=== PATIENT | male | born 2000 | race Caucasian/White ===

== ENCOUNTER 2024-04-29 09:48 | Emergency (ER) | payer OTHER ==
[~2024-04-29] VITALS: Ht 182.9 cm; Wt 85.3 kg
[2024-04-29] MEDS ORDERED: CIPR7.5D2 AU (12:30)
[2024-04-29 12:35] VITALS: BP 133/84; TEMP 97.1; O2SAT 98
== END 2024-04-29 12:37 | disposition home or self-care (01) ==
LOC: M ED 09:48
DX: H61.23 Impacted cerumen, bilateral (principal); F10.10 Alcohol abuse, uncomplicated; Z79.2 Long term (current) use of antibiotics

== ENCOUNTER 2024-06-26 13:46 | Inpatient (IN) | payer OTHER ==
[~2024-06-26] VITALS: Ht 182.9 cm; Wt 84.7 kg
[~2024-06-26 13:46] MED LIST: CIPR7.5D2 AU
[2024-06-26] MEDS ORDERED: ONDANSETRON 4MG 2ML VIAL IV ONE (14:25)
[2024-06-26 14:29] LABS: BASO # 0.1 10^3/uL (0.0-0.2); BASO % 1.3 % (0.0-1.0); EOS # 0.5 10^3/uL (0.0-0.5); EOS % 6.4 % (0.0-3.0); HEMATOCRIT 40.7 % (42.0-52.0); HEMOGLOBIN 14.1 g/dl (13.5-17.5); LYMPH # 2.9 10^3/uL (1.5-5.0); LYMPH % 38.4 % (24.0-44.0); MEAN CORPUSCULAR HEMOGLOBIN 30.9 pg (27.0-33.0); MEAN CORPUSCULAR HGB CONC 34.6 g/dl (32.0-36.5); MEAN CORPUSCULAR VOLUME 89.1 fl (80.0-96.0); MONO # 0.5 10^3/uL (0.0-0.8); MONO % 5.9 % (2.0-8.0); NEUTROPHILS # 3.7 10^3/uL (1.5-8.5); NEUTROPHILS % 47.9 % (36.0-66.0); PLATELET COUNT, AUTOMATED 320 10^3/uL (150-450); RED BLOOD COUNT 4.57 10^6/uL (4.30-6.10); WHITE BLOOD COUNT 7.7 10^3/uL (4.0-10.0)
[2024-06-26] MEDS: KETOROLAC 30 MG/ML 1ML VIAL IV ONE (14:39)
[2024-06-26] MEDS: METOCLOPRAMIDE INJ 10MG/2ML VIAL IV ONE (14:45)
[2024-06-26] MEDS ORDERED: ISOVUE-370 76% 100ML VIAL As Ordered ONE (14:48)
[2024-06-26] MEDS: NS 1,000 ML IV ONE (14:52)
[2024-06-26 14:58] LABS: LIPASE 28 U/L (12-53)
[2024-06-26 15:00] LABS: ALBUMIN 4.6 G/DL (3.2-5.2); ALKALINE PHOSPHATASE 61 U/L (46-116); ALT/SGPT 41 U/L (7.0-40); AST/SGOT 17 U/L (<34); BILIRUBIN,DIRECT 0.3 MG/DL (<0.4); BILIRUBIN,TOTAL 1.1 MG/DL (0.3-1.2); BLOOD UREA NITROGEN 13 MG/DL (9-23); CARBON DIOXIDE LEVEL 24 MMOL/L (20-31); CHLORIDE LEVEL 104 MMOL/L (98-107); CREATININE FOR GFR 0.86 MG/DL (0.70-1.30); GLOMERULAR FILTRATION RATE > 60.0 (>60); GLUCOSE, FASTING 120 MG/DL (60-100); POTASSIUM SERUM 3.1 MMOL/L (3.5-5.1); SODIUM LEVEL 137 MMOL/L (136-145); TOTAL PROTEIN 7.4 G/DL (5.7-8.2)
[2024-06-26] MEDS: MORPHINE 4 MG/ML 1ML VIAL IV ONE ×2 (15:12→15:41)
[2024-06-26 15:17] LABS: CPK CREATINE PHOSPHOKINASE 71 U/L (46-171)
[2024-06-26] MEDS: KCL 10MEQ/100ML SWI (KRUN) 10 MEQ in IV 1 EA IV ONE (15:57)
[2024-06-26] MEDS ORDERED: ONDANSETRON 4MG 2ML VIAL IV PRN (16:00)
[2024-06-26] MEDS ORDERED: HOME MED LIST COMPLETE! XX SCH (16:25)
[2024-06-26] MEDS ORDERED: HYDROmorphone HCL 2MG/ML 1ML VIAL As Ordered ONE (17:16)
[2024-06-26] MEDS ORDERED: fentaNYL 100 MCG/2 ML INJECTION As Ordered ONE (17:16)
[2024-06-26] MEDS ORDERED: MIDAZOLAM INJ 2MG/2ML VIAL As Ordered ONE (17:16)
[2024-06-26] MEDS ORDERED: SUGAMMADEX SODIUM 500 MG/5 ML VIAL (BRIDION) As Ordered ONE (17:17)
[2024-06-26] MEDS ORDERED: SUCCINYLCHOLINE 100MG/5ML SYRINGE As Ordered ONE (17:17)
[2024-06-26] MEDS ORDERED: ONDANSETRON 4MG 2ML VIAL As Ordered ONE (17:17)
[2024-06-26] MEDS ORDERED: LIDOCAINE 2% 100MG/5ML SDV (FOR ANES.) As Ordered ONE (17:17)
[2024-06-26] MEDS ORDERED: ROCURONIUM BROMIDE 50MG/5ML VIAL As Ordered ONE (17:17)
[2024-06-26] MEDS ORDERED: KETOROLAC 60MG 2ML VIAL As Ordered ONE (17:17)
[2024-06-26] MEDS ORDERED: propofoL 200 MG/20 ML VIAL As Ordered ONE (17:17)
[2024-06-26] MEDS: ceFAZolin 2 GM/D5W 50 ML IV BAG As Ordered ONE (17:44)
[2024-06-26] MEDS: metroNIDAZOLE/NACL 500MG(5MG/ML) 100ML BAG As Ordered ONE (17:50)
[2024-06-26] MEDS ORDERED: ACETAMINOPHEN 1000MG 100ML IV BAG As Ordered ONE (17:56)
[2024-06-26 19:54] VITALS: BP 143/86; TEMP 97.3; O2SAT 97
[2024-06-26 20:00] VITALS: BP 143/86; TEMP 97.3; O2SAT 93; O2SAT 97
[2024-06-26] MEDS: KCL 20MEQ IN D5/0.45NS 1000ML 1,000 ML IV SCH (20:10)
[2024-06-26 20:30] VITALS: BP 138/69; TEMP 97.3; O2SAT 96
[2024-06-26 21:00] VITALS: BP 136/71; TEMP 97.5; O2SAT 95
[2024-06-26] MEDS: KETOROLAC 30 MG/ML 1ML VIAL IV SCH (21:22)
[2024-06-26] MEDS: FAMOTIDINE 20 MG TAB PO SCH (21:29)
[2024-06-26 22:00] VITALS: BP 131/71; TEMP 97.3; O2SAT 95
[2024-06-26 23:00] VITALS: BP 124/70; TEMP 97.2; O2SAT 96
[2024-06-27] VITALS (8 sets, daily range): BP systolic 120–129; BP diastolic 61–76; TEMP 97–98.6; O2SAT 94–100
[2024-06-27] MEDS: MORPHINE 2 MG/ML 1ML VIAL IV PRN (00:09)
[2024-06-27] MEDS: ENOXAPARIN 40MG/0.4ML SYRINGE (J1650 PER 10MG) SC SCH (08:28)
[2024-06-27 08:39] LABS: HEMATOCRIT 37.9 % (42.0-52.0); HEMOGLOBIN 12.6 g/dl (13.5-17.5); MEAN CORPUSCULAR HEMOGLOBIN 30.6 pg (27.0-33.0); MEAN CORPUSCULAR HGB CONC 33.2 g/dl (32.0-36.5); PLATELET COUNT, AUTOMATED 234 10^3/uL (150-450); RED BLOOD COUNT 4.12 10^6/uL (4.30-6.10); WHITE BLOOD COUNT 11.4 10^3/uL (4.0-10.0)
[2024-06-27 09:07] LABS: BLOOD UREA NITROGEN 9 MG/DL (9-23); CALCIUM LEVEL 8.7 MG/DL (8.5-10.1); CARBON DIOXIDE LEVEL 32 MMOL/L (20-31); CHLORIDE LEVEL 107 MMOL/L (98-107); CREATININE FOR GFR 0.89 MG/DL (0.70-1.30); GLOMERULAR FILTRATION RATE > 60.0 (>60); GLUCOSE, FASTING 106 MG/DL (60-100); POTASSIUM SERUM 3.8 MMOL/L (3.5-5.1); SODIUM LEVEL 140 MMOL/L (136-145)
[2024-06-27] MEDS: PERCOCET 5MG/325MG TAB PO PRN (19:52)
[2024-06-28 04:02] VITALS: BP 117/66; TEMP 97.5; O2SAT 97
[2024-06-28 08:31] LABS: HEMATOCRIT 35.1 % (42.0-52.0); HEMOGLOBIN 11.7 g/dl (13.5-17.5); MEAN CORPUSCULAR HEMOGLOBIN 31.2 pg (27.0-33.0); MEAN CORPUSCULAR HGB CONC 33.3 g/dl (32.0-36.5); MEAN CORPUSCULAR VOLUME 93.6 fl (80.0-96.0); PLATELET COUNT, AUTOMATED 198 10^3/uL (150-450); RED BLOOD COUNT 3.75 10^6/uL (4.30-6.10); WHITE BLOOD COUNT 6.1 10^3/uL (4.0-10.0)
[2024-06-28 08:59] LABS: BLOOD UREA NITROGEN 7 MG/DL (9-23); CALCIUM LEVEL 8.5 MG/DL (8.5-10.1); CARBON DIOXIDE LEVEL 32 MMOL/L (20-31); CHLORIDE LEVEL 110 MMOL/L (98-107); CREATININE FOR GFR 0.84 MG/DL (0.70-1.30); GLOMERULAR FILTRATION RATE > 60.0 (>60); GLUCOSE, FASTING 88 MG/DL (60-100); POTASSIUM SERUM 3.7 MMOL/L (3.5-5.1); SODIUM LEVEL 145 MMOL/L (136-145)
[2024-06-28 12:00] VITALS: BP 122/63; TEMP 97.2; O2SAT 95
[2024-06-28 20:05] VITALS: BP 111/55; TEMP 97.5; O2SAT 97
[2024-06-29 04:08] VITALS: BP 118/65; TEMP 97; O2SAT 98
[2024-06-29 05:59] LABS: HEMATOCRIT 33.9 % (42.0-52.0); HEMOGLOBIN 11.3 g/dl (13.5-17.5); MEAN CORPUSCULAR HEMOGLOBIN 31.1 pg (27.0-33.0); MEAN CORPUSCULAR HGB CONC 33.3 g/dl (32.0-36.5); MEAN CORPUSCULAR VOLUME 93.4 fl (80.0-96.0); PLATELET COUNT, AUTOMATED 206 10^3/uL (150-450); RED BLOOD COUNT 3.63 10^6/uL (4.30-6.10); WHITE BLOOD COUNT 5.5 10^3/uL (4.0-10.0)
[2024-06-29 12:00] VITALS: BP 126/65; TEMP 97.7; O2SAT 99
[2024-06-29 20:43] VITALS: BP 123/76; TEMP 97.7; O2SAT 99
[2024-06-30 04:37] VITALS: BP 112/61; TEMP 97.2; O2SAT 97
[2024-06-30] MEDS: DOCUSATE SODIUM 100MG CAPSULE PO SCH (08:55)
[2024-06-30] MEDS: SENNA 8.6 MG TAB (SENOKOT) PO PRN (08:58)
[2024-06-30] MEDS: BISACODYL 10MG SUPP PR ONE (08:58)
[2024-06-30 10:27] VITALS: BP 112/61; TEMP 97.2; O2SAT 97
[2024-06-30] MEDS ORDERED: HYDR-3713 PO (10:50)
[2024-06-30 12:00] VITALS: BP 112/67; TEMP 97.5; O2SAT 100
== END 2024-06-30 17:00 | disposition home or self-care (01) | DRG 331 ==
LOC: M ED 13:46 → M ED INP 15:58 → M MS5PR 19:54
PROVIDERS: ADMIT Surgery; ATTEND Surgery
PROC: 0DBH0ZZ Excision of Cecum, Open Approach (ICD-10-PCS; principal; 2024-06-27)
PROC: 0DBB0ZZ Excision of Ileum, Open Approach (ICD-10-PCS; 2024-06-27)
DX: K56.2 Volvulus (principal); Z88.6 Allergy status to analgesic agent; Z88.8 Allergy status to other drugs, medicaments and biological substances